=== PATIENT | male | born 2000 | race Caucasian/White ===

== ENCOUNTER 2019-01-02 00:07 | Emergency (ER) | payer SELFPAY ==
[~2019-01-02] VITALS: Ht 175.3 cm; Wt 72.0 kg
[2019-01-02] MEDS ORDERED: LIDOCAINE HCL/PF 1% 10 MG/ML 5ML VIAL IJ ONE (01:00)
[2019-01-02] MEDS ORDERED: BACITRACIN ZINC OINT UDPKT TOP ONE (01:00)
[2019-01-02] MEDS ORDERED: ONDANSETRON 4MG ODT PO ONE (01:00)
[2019-01-02] MEDS ORDERED: HYDROCODONE/ACETAMINOPHEN 5/325MG TABLET PO ONE (01:00)
[2019-01-02] MEDS ORDERED: TETANUS, DIPHTHERIA, PERTUSSIS VAC/PF 0.5ML (>7YR OLD) IM ONE (01:00)
[2019-01-02 03:40] VITALS: BP 131/73
== END 2019-01-02 03:39 | disposition home or self-care (01) ==
LOC: ER 00:07
DX: S61.218A Laceration without foreign body of other finger without damage to nail, initial encounter (principal); W01.110A Fall on same level from slipping, tripping and stumbling with subsequent striking against sharp glass, initial encounter; Y93.9 Activity, unspecified; Y92.9 Unspecified place or not applicable
CPT/HCPCS: 12002; 73140; 90471; 90715; 99283; J3490; Z7610; Q0162